=== PATIENT | female | born 1985 | race Caucasian/White ===

== ENCOUNTER → 2016-12-16 | Outpatient (CLI) | payer OTHER ==
--- NOTE | 2016-12-16 14:52 | CR ---
EXAMINATION: Right shoulder HISTORY: Pain COMPARISON: None TECHNIQUE: 3 views FINDINGS/IMPRESSION: There is no acute osseous abnormality, dislocation, or fracture identified. Bon e mineralization and joint spaces appear normal.
--- NOTE | 2016-12-16 16:05 | CR ---
EXAMINATION: Cervical spine HISTORY: Pain COMPARISON: None TECHNIQUE: AP and lateral views FINDINGS: The cervical spinal alignment is normal. The vertebral body heights and disc spaces appear well-maintained. There is no fracture or dislocation. Bone mineralization is normal. The prevertebr al soft tissues are normal. IMPRESSION: Unremarkable cervical spine.
== END ==
LOC: MW.CHORTHO 07:56
PROVIDERS: ATTEND Physician Assistant
DX: M25.511 Pain in right shoulder (principal)
CPT/HCPCS: 72040; 72040-26; 73030-26-RT; 73030-RT

== ENCOUNTER 2019-07-10 13:36 | Observation (INO) | payer OTHER ==
[2019-07-10] MEDS ORDERED: Albuterol/Ipratropium 3.0-0.5 MG/3 ML Neb Soln NEB ONE ×4 (13:40→15:19)
[2019-07-10] MEDS ORDERED: Sodium Chloride 0.9% 10 ML Syringe FLUSH PRN (13:46)
[2019-07-10] MEDS ORDERED: methylPREDNISolone Sodium Succinate 125 MG/2 ML SDV IVPUSH ONE (13:46)
[2019-07-10] MEDS ORDERED: Sodium Chloride 0.9% 2.5 ML Syringe FLUSH PRN (13:46)
[2019-07-10] MEDS ORDERED: Sodium Chloride 0.9% 1,000 ML IV ONE (13:46)
--- NOTE | 2019-07-10 13:54 | EDM.PDOC ---
ED HPI GENERAL MEDICAL PROBLEM - General Chief Complaint: Respiratory Problem Stated Complaint: TROUBLE BREATHING Time Seen by Provider: 07/10/19 13:39 - History of Present Illness INITIAL COMMENTS - FREE TEXT/NARRATIVE: HISTORY AND PHYSICAL: History of present illness: The patient is a 34-year-old female with no pulmonary history such as asthma or COPD and who does not smoke cigarettes and has a history of getting bad bronchitis 3 out of the last 4 years, last year she did not get it, and presenting with similar symptoms today. The patient says she was in the clinic on Thursday, 2 days ago, and got her flu shot but also complained of some symptoms of wheezing and coughing and she was given cough medicine as well as a Ventolin inhaler and Augmentin. She did not have any specific testing at that time such as the chest x-ray or blood work. Patient says she has never been admitted in the past for her bronchitis. She is eating and drinking normally and is not having any vomiting or diarrhea. The patient denies as her has a vasectomy. She does some event in the past when she's had bronchitis she has always received steroids and on this visit on Thursday she did not get any steroid therapy. The patient says her cough is dry except if she goes into a warm shower and then it will loosen up and she gets some phlegm up but that is not a regular event. She has felt warm but she has not taken her temperature to document fever. She has nasal drainage and postnasal drip. The sore throat headache or ear pain. Patient does complain of diffuse chest pain with the shortness of breath. Patient denies as her has a vasectomy Review of systems: As per history of present illness and below otherwise all systems reviewed and negative. Past medical history: As per history of present illness and as reviewed below otherwise noncontributory. Surgical history: As per history of present illness and as reviewed below otherwise noncontributory. Social history: No reported history of drug or alcohol abuse. Family history: As per history of present illness and as reviewed below otherwise noncontributory. Physical exam: General: Well-developed well-nourished female who is nontoxic but breathless on initial evaluation and her O2 sat with ambulating into the room and talking with 79% on room air and 84% when she was seated. She is currently on a DuoNeb as I speak to her and interview her. HEENT: Atraumatic, normocephalic, pupils reactive, negative for conjunctival pallor or scleral icterus, mucous membranes moist, throat clear, neck supple, nontender, trachea midline. Lungs: Bilateral wheezing and rhonchi throughout but she does have decent air exchange throughout all lung garcia on the neb treatment, there is some mild work of breathing with abdominal muscles, breath sounds equal bilaterally, chest nontender. Heart: S1S2, regular rhythm slightly tachycardic rate on my evaluation Abdomen: Soft, nondistended, nontender. NABS Pelvis: Deferred Genitourinary: Deferred. Rectal: Deferred. Extremities: Atraumatic, negative for cords or calf pain. No Pedal edema Neurovascular unremarkable. Neuro: Awake, alert, oriented. Cranial nerves II through XII unremarkable. Cerebellum unremarkable. Motor and sensory unremarkable throughout. Exam nonfocal. Diagnostics: Chest x-ray CBC CMP influenza EKG lactic acid Therapeutics: Duo nebs 3 IV fluids Solu-Medrol oxygen pulse oximetry After the first 2 duo nebs the patient is a 94% on 3 L nasal cannula After the third duo neb patient's O2 sat is now 98% on 3 L nasal cannula oxygen. The patient is moving air much better but she still has coarse diffuse expiratory wheezing bilaterally and no worker breathing. The patient does feel improved. We will continue to monitor her work up and I've already discussed with her the possibility for observation admission Patient is still wheezing but moving air well so we'll order a fourth DuoNeb. Her O2 sat is holding a 94% on 3 L but when we take the oxygen off and start moving her around she does dip down to the low 90s. And then she feels uncomfortable. She says she is very tired and that should all last night she could not sleep because of shortness of breath coughing and the fear that something bad was going to happen. I've discussed with her observation admission just to break the cycle and she is agreeable and I will discuss the case with the hospitalist This case was discussed with the hospitalist Dr. Amador; he is aware of the presentation and the initial hypoxia as well as the patient's progress here in the ED. I also discussed with her the WBC count and the fact that the patient is currently on Augmentin. 0328: Case was discussed with our hospitalist and she agrees with observation admission and that the patient can continue taking her home medication, Augmentin, instead of starting a new antibiotic. She thinks of the WBC count is likely reactive. Patient is comfortable and agreeable to staying. Impression: Acute bronchitis/bronchospasm with hypoxia Definitive disposition and diagnosis as appropriate pending reevaluation and review of above. - Related Data Allergies Allergy/AdvReac Type Severity Reaction Status Date / Time davidpeno Allergy Difficulty Uncoded 07/10/19 13:42 Breathing Home Meds: Home Meds Levothyroxine [Synthroid] 50 mcg PO ACBREAKFAST 07/10/19 [History] Venlafaxine HCl [Venlafaxine ER] 187.5 mg DAILY 07/10/19 [History] Past Medical History - Past Health History Medical/Surgical History: Denies Medical/Surgical History Respiratory History: Reports: Bronchitis, Recurrent [employer] History: Reports: Psychiatric History: Reports: Anxiety Endocrine/Metabolic History: Reports: Hypothyroidism - Past Surgical History HEENT Surgical History: Reports: Eye Surgery, Oral Surgery Social & Family History - Family History Family Medical History: Noncontributory - Tobacco Use Smoking Status *Q: Never Smoker - Recreational Drug Use Recreational Drug Use: No ED ROS GENERAL - Review of Systems Review Of Systems: ROS reveals no pertinent complaints other than HPI. ED EXAM, GENERAL - Physical Exam Exam: See Below (see dictation) Course - Vital Signs Last Recorded V/S: Last Vital Signs Temp 36.7 C 07/10/19 13:40 Pulse 110 H 07/10/19 15:18 Resp 20 07/10/19 15:18 BP 163/112 H 07/10/19 13:40 Pulse Ox 95 07/10/19 15:18 - Orders/Labs/Meds Orders: Active Orders 24 hr Category Date Time Status Patient Status [ADT] Stat ADT 07/10/19 15:30 Ordered EKG Documentation Completion [RC] STAT Care 07/10/19 13:47 Active Oxygen Therapy, ED [RC] ASDIRECTED Care 07/10/19 13:46 Active Pulse Oximetry [RC] ASDIRECTED Care 07/10/19 13:46 Active RT Aerosol Therapy [RC] ASDIRECTED Care 07/10/19 13:41 Active RT Aerosol Therapy [RC] ASDIRECTED Care 07/10/19 13:46 Active RT Aerosol Therapy [RC] ASDIRECTED Care 07/10/19 13:46 Active RT Aerosol Therapy [RC] ASDIRECTED Care 07/10/19 15:19 Active Sodium Chloride 0.9% [Normal Saline] 1,000 ml Med 07/10/19 15:30 Ordered IV ASDIRECTED Sodium Chloride 0.9% [Saline Flush] Med 07/10/19 13:46 Active 10 ml FLUSH ASDIRECTED PRN Sodium Chloride 0.9% [Saline Flush] Med 07/10/19 13:46 Active 2.5 ml FLUSH ASDIRECTED PRN Saline Lock Insert [OM.PC] Stat Oth 07/10/19 13:46 Ordered Medication Orders Sodium Chloride (Saline Flush) 10 ml FLUSH ASDIRECTED PRN PRN Reason: Keep Vein Open Last Admin: 07/10/19 13:55 Dose: 10 ml Sodium Chloride (Saline Flush) 2.5 ml FLUSH ASDIRECTED PRN PRN Reason: Keep Vein Open Last Admin: 07/10/19 13:55 Dose: 2.5 ml Labs: Laboratory Tests 07/10/19 07/10/19 07/10/19 Range/Units 13:45 13:45 13:45 WBC 16.17 H (4.0-11.0) K/uL RBC 4.84 (4.30-5.90) M/uL Hgb 15.8 (12.0-16.0) g/dL Hct 46.5 H (36.0-46.0) % MCV 96.1 (80.0-98.0) fL MCH 32.6 H (27.0-32.0) pg MCHC 34.0 (31.0-37.0) g/dL RDW Std Deviation 44.5 (28.0-62.0) fl RDW Coeff of Ksenia 13 (11.0-15.0) % Plt Count 160 (150-400) K/uL MPV 13.50 H (7.40-12.00) fL Neut % (Auto) 83.2 H (48.0-80.0) % Lymph % (Auto) 7.5 L (16.0-40.0) % [place] % (Auto) 5.9 (0.0-15.0) % Eos % (Auto) 3.3 (0.0-7.0) % Baso % (Auto) 0.1 (0.0-1.5) % Neut # (Auto) 13.5 H (1.4-5.7) K/uL Lymph # (Auto) 1.2 (0.6-2.4) K/uL [place] # (Auto) 1.0 H (0.0-0.8) K/uL Eos # (Auto) 0.5 (0.0-0.7) K/uL Baso # (Auto) 0.0 (0.0-0.1) K/uL Nucleated RBC % 0.1 /100WBC Nucleated RBCs # 0 K/uL Lactate 1.6 (0.20-2.00) mmol/L Sodium 141 (136-145) mmol/L Potassium 3.9 (3.5-5.1) mmol/L Chloride 101 (98-107) mmol/L Carbon Dioxide 29.9 (21.0-32.0) mmol/L BUN 6 L (7.0-18.0) mg/dL Creatinine 0.7 (0.6-1.0) mg/dL Est Cr Clr Drug Dosing 102.86 mL/min Estimated GFR (MDRD) > 60.0 ml/min Glucose 96 (74-106) mg/dL Calcium 9.3 (8.5-10.1) mg/dL Total Bilirubin 0.4 (0.2-1.0) mg/dL AST 28 (15-37) IU/L ALT 24 (14-63) IU/L Alkaline Phosphatase 74 (46-116) U/L Total Protein 8.4 H (6.4-8.2) g/dL Albumin 4.1 (3.4-5.0) g/dL Globulin 4.3 H (2.6-4.0) g/dL Albumin/Globulin Ratio 1.0 (0.9-1.6) Meds: Medications Generic Name Dose Route Start Last Admin Trade Name Freq PRN Reason Stop Dose Admin Sodium Chloride 10 ml 07/10/19 13:46 07/10/19 13:55 Saline Flush FLUSH 10 ml ASDIRECTED PRN Administration Keep Vein Open Sodium Chloride 2.5 ml 07/10/19 13:46 07/10/19 13:55 Saline Flush FLUSH 2.5 ml ASDIRECTED PRN Administration Keep Vein Open Discontinued Medications Generic Name Dose Route Start Last Admin Trade Name Freq PRN Reason Stop Dose Admin Albuterol/Ipratropium 3 ml 07/10/19 13:40 07/10/19 13:44 Duoneb 3.0-0.5 Mg/3 Ml NEB 07/10/19 13:41 3 ml ONETIME ONE Administration Albuterol/Ipratropium 3 ml 07/10/19 13:45 07/10/19 13:50 Duoneb 3.0-0.5 Mg/3 Ml NEB 07/10/19 13:46 3 ml ONETIME ONE Administration Albuterol/Ipratropium 3 ml 07/10/19 13:46 07/10/19 14:02 Duoneb 3.0-0.5 Mg/3 Ml NEB 07/10/19 13:47 3 ml ONETIME ONE Administration Albuterol/Ipratropium 3 ml 07/10/19 15:19 07/10/19 15:28 Duoneb 3.0-0.5 Mg/3 Ml NEB 07/10/19 15:20 3 ml ONETIME ONE Administration Sodium Chloride 1,000 mls @ 999 mls/hr 07/10/19 13:46 07/10/19 13:55 Normal Saline IV 07/10/19 14:46 999 mls/hr STAT ONE Administration Methylprednisolone Sodium Succinate 125 mg 07/10/19 13:46 07/10/19 13:55 Solu-Medrol IVPUSH 07/10/19 13:47 125 mg ONETIME ONE Administration Departure - Departure Time of Disposition: 15:33 Disposition: Refer to Observation Condition: Fair Clinical Impression: Hypoxia, Bronchitis, acute, with bronchospasm - Discharge Information Referrals: PCP,Unknown [Primary Care Provider] - Forms: ED Department Discharge - My Orders Last 24 Hours: My Active Orders 07/10/19 13:41 RT Aerosol Therapy [RC] ASDIRECTED 07/10/19 13:46 Oxygen Therapy, ED [RC] ASDIRECTED Pulse Oximetry [RC] ASDIRECTED RT Aerosol Therapy [RC] ASDIRECTED RT Aerosol Therapy [RC] ASDIRECTED Sodium Chloride 0.9% [Saline Flush] 10 ml FLUSH ASDIRECTED PRN Sodium Chloride 0.9% [Saline Flush] 2.5 ml FLUSH ASDIRECTED PRN Saline Lock Insert [OM.PC] Stat 07/10/19 13:47 EKG Documentation Completion [RC] STAT 07/10/19 15:19 RT Aerosol Therapy [RC] ASDIRECTED 07/10/19 15:30 Patient Status [ADT] Stat Sodium Chloride 0.9% [Normal Saline] 1,000 ml IV ASDIRECTED - Assessment/Plan Last 24 Hours: My Active Orders 07/10/19 13:41 RT Aerosol Therapy [RC] ASDIRECTED 07/10/19 13:46 Oxygen Therapy, ED [RC] ASDIRECTED Pulse Oximetry [RC] ASDIRECTED RT Aerosol Therapy [RC] ASDIRECTED RT Aerosol Therapy [RC] ASDIRECTED Sodium Chloride 0.9% [Saline Flush] 10 ml FLUSH ASDIRECTED PRN Sodium Chloride 0.9% [Saline Flush] 2.5 ml FLUSH ASDIRECTED PRN Saline Lock Insert [OM.PC] Stat 07/10/19 13:47 EKG Documentation Completion [RC] STAT 07/10/19 15:19 RT Aerosol Therapy [RC] ASDIRECTED 07/10/19 15:30 Patient Status [ADT] Stat Sodium Chloride 0.9% [Normal Saline] 1,000 ml IV ASDIRECTED
[2019-07-10 14:17] LABS: BLOOD UREA NITROGEN,BUN 6 mg/dL (7.0-18.0); CARBON DIOXIDE,CO2 29.9 mmol/L (21.0-32.0); CHLORIDE,CL 101 mmol/L (98-107); GLUCOSE RANDOM 96 mg/dL (74-106); POTASSIUM,K 3.9 mmol/L (3.5-5.1); SODIUM,NA 141 mmol/L (136-145)
--- NOTE | 2019-07-10 15:11 | CR ---
INDICATION: Shortness of breath COMPARISON: None available. FINDINGS: PA and lateral views of the chest were obtained. The lungs are clear. No focal or diffuse infiltrates are present. The heart is normal in size. The mediastinum is normal in appearance. The osseous structures are normal in appearance for the patient`s age. IMPRESSION: Normal chest 2 views. Dictated by Luciano Burch MD @ Jul 10 2019 3:08PM Signed by Dr. Luciano Burch @ Jul 10 2019 3:08PM
[2019-07-10] MEDS: Sodium Chloride 0.9% 1,000 ML IV SCH ×2 (15:35→19:59)
[2019-07-10] MEDS ORDERED: Ibuprofen 400 MG Tab PO PRN (16:33)
[2019-07-10] MEDS ORDERED: Albuterol/Ipratropium 3.0-0.5 MG/3 ML Neb Soln NEB PRN (16:33)
--- NOTE | 2019-07-10 16:42 | PCM.HP.2 ---
H&P History of Present Illness - General Date of Service: 07/10/19 Admit Problem/Dx: Admission Diagnosis/Problem Admission Diagnosis/Problem Bronchitis with bronchospasm . Source of Information: Patient History Limitations: Reports: No Limitations - History of Present Illness Initial Comments - Free Text/Narative: The patient is a 34-year-old female non-smoker, h/o frequent bronchitis, with no known asthma or COPD resenting with SOB. The patient says she went to clinic 2 days ago, and got her flu shot but also complained of some symptoms of wheezing and coughing and she was given cough medicine and Ventolin inhaler and Augmentin. Patient says she has never been admitted in the past for her bronchitis. Denied any vomiting or diarrhea. She reports subjective fevers dry cough, some chest pain with cough and postnasal drip. Patient was found to be severely hypoxic with Po2 of 79%. Patient was started on O2 and received Breathing treatments and steroids which improved her oxygenation. CXR and EKG was not significant for any acute process, Patient is being admitted for management of acute hypoxic respiratory failure. Onset of Symptoms: Reports: Today Duration of Symptoms: Reports: Getting Worse Quality: Reports: Same as Previous Episode Associated Symptoms: Reports: Chest Pain, Cough, Shortness of Breath - Related Data Allergies/Adverse Reactions: Allergies Allergy/AdvReac Type Severity Reaction Status Date / Time zakia Allergy Difficulty Uncoded 07/10/19 17:03 Breathing Home Medications: Home Meds Albuterol [Ventolin HFA] 2 puff INH Q4H PRN 07/10/19 [History] Levothyroxine [Synthroid] 50 mcg PO ACBREAKFAST 07/10/19 [History] Venlafaxine HCl [Venlafaxine ER] 187.5 mg DAILY 07/10/19 [History] guaiFENesin/Codeine Phosphate [Virtussin AC Liquid] 5 - 7.5 ml PO Q6HR PRN 07/10 [History] Past Medical History - Past Health History Medical/Surgical History: Denies Medical/Surgical History Respiratory History: Reports: Bronchitis, Recurrent [employer] History: Reports: Psychiatric History: Reports: Anxiety Endocrine/Metabolic History: Reports: Hypothyroidism - Past Surgical History HEENT Surgical History: Reports: Eye Surgery, Oral Surgery Social & Family History - Family History Family Medical History: Noncontributory - Tobacco Use Smoking Status *Q: Never Smoker - Recreational Drug Use Recreational Drug Use: No H&P Review of Systems - Review of Systems: Review Of Systems: See Below General: Reports: Fever, Chills, Malaise HEENT: Reports: Rhinitis, Post Nasal Drip, Sore Throat Pulmonary: Reports: Shortness of Breath, Wheezing, Cough Cardiovascular: Reports: Chest Pain, Dyspnea on Exertion. Denies: Palpitations , Orthopnea, PND, Edema Gastrointestinal: Denies: Abdominal Pain, Anorexia, Black Stool Genitourinary: Denies: Dysuria, Frequency, Burning Musculoskeletal: Denies: Neck Pain, Shoulder Pain Skin: Denies: Cyanosis, Jaundice Neurological: Denies: Confusion, Dizziness, Headache Hematologic/Lymphatic: Denies: Anemia, Easy Bleeding, Easy Bruising Exam - Exam Exam: See Below - Vital Signs Vital Signs: Last Vital Signs Temp 36.3 C 07/10/19 15:40 Pulse 140 H 07/10/19 15:40 Resp 20 07/10/19 15:40 BP 141/58 H 07/10/19 15:40 Pulse Ox 100 07/10/19 15:40 Weight: 70.307 kg - Exam Quality Assessment: Supplemental Oxygen General: Alert, Oriented, Cooperative, Moderate Distress HEENT: Conjunctiva Clear, Mucosa Moist & [place], Rhinitis Neck: Supple, Trachea Midline Lungs: Decreased Breath Sounds, Wheezing Cardiovascular: Regular Rhythm, Tachycardia GI/Abdominal Exam: Normal Bowel Sounds, Soft - Patient Data Lab Results Last 24 hrs: Laboratory Results - last 24 hr 07/10/19 07/10/19 07/10/19 Range/Units 13:45 13:45 13:45 WBC 16.17 H (4.0-11.0) K/uL RBC 4.84 (4.30-5.90) M/uL Hgb 15.8 (12.0-16.0) g/dL Hct 46.5 H (36.0-46.0) % MCV 96.1 (80.0-98.0) fL MCH 32.6 H (27.0-32.0) pg MCHC 34.0 (31.0-37.0) g/dL RDW Std Deviation 44.5 (28.0-62.0) fl RDW Coeff of Ksenia 13 (11.0-15.0) % Plt Count 160 (150-400) K/uL MPV 13.50 H (7.40-12.00) fL Neut % (Auto) 83.2 H (48.0-80.0) % Lymph % (Auto) 7.5 L (16.0-40.0) % [place] % (Auto) 5.9 (0.0-15.0) % Eos % (Auto) 3.3 (0.0-7.0) % Baso % (Auto) 0.1 (0.0-1.5) % Neut # (Auto) 13.5 H (1.4-5.7) K/uL Lymph # (Auto) 1.2 (0.6-2.4) K/uL [place] # (Auto) 1.0 H (0.0-0.8) K/uL Eos # (Auto) 0.5 (0.0-0.7) K/uL Baso # (Auto) 0.0 (0.0-0.1) K/uL Nucleated RBC % 0.1 /100WBC Nucleated RBCs # 0 K/uL Lactate 1.6 (0.20-2.00) mmol/L Sodium 141 (136-145) mmol/L Potassium 3.9 (3.5-5.1) mmol/L Chloride 101 (98-107) mmol/L Carbon Dioxide 29.9 (21.0-32.0) mmol/L BUN 6 L (7.0-18.0) mg/dL Creatinine 0.7 (0.6-1.0) mg/dL Est Cr Clr Drug Dosing 102.86 mL/min Estimated GFR (MDRD) > 60.0 ml/min Glucose 96 (74-106) mg/dL Calcium 9.3 (8.5-10.1) mg/dL Total Bilirubin 0.4 (0.2-1.0) mg/dL AST 28 (15-37) IU/L ALT 24 (14-63) IU/L Alkaline Phosphatase 74 (46-116) U/L Total Protein 8.4 H (6.4-8.2) g/dL Albumin 4.1 (3.4-5.0) g/dL Globulin 4.3 H (2.6-4.0) g/dL Albumin/Globulin Ratio 1.0 (0.9-1.6) Result Diagrams: 07/10/19 13:45 07/10/19 13:45 Junior Results Last 24 hrs: Microbiology 07/10/19 13:51 Influenza Type A Antigen Screen - Final Nasopharyngeal Swab NEGATIVE INFLUENZA A VIRUS AG REFERENCE RANGE: NEGATIVE Influenza Type B Antigen Screen - Final NEGATIVE INFLUENZA B VIRUS AG REFERENCE RANGE: NEGATIVE *Q Meaningful Use (ADM) - VTE Risk Assess *Q Each Risk Factor Represents 1 Point: None Total Score 1 Point Risk Factors: 0 Each Risk Factor Represents 2 Points: None Total Score 2 Point Risk Factors: 0 Each Risk Factor Represents 3 Points: None Total Score 3 Point Risk Factors: 0 - Problem List (1) Acute hypoxemic respiratory failure SNOMED Code(s): 415611782 ICD Code: J96.01 - ACUTE RESPIRATORY FAILURE WITH HYPOXIA Status: Acute Current Visit: Yes (2) Bronchitis, acute, with bronchospasm SNOMED Code(s): 71700878 ICD Code: J20.9 - ACUTE BRONCHITIS, UNSPECIFIED Status: Acute Current Visit: Yes Problem List Initiated/Reviewed/Updated: Yes Orders Last 24hrs: Active Orders 24 hr Category Date Time Status Patient Status [ADT] Stat ADT 07/10/19 15:30 Active Ambulate [RC] ASDIRECTED Care 07/10/19 16:17 Active EKG Documentation Completion [RC] STAT Care 07/10/19 13:47 Active Oxygen Therapy [RC] PRN Care 07/10/19 16:18 Active Oxygen Therapy, ED [RC] ASDIRECTED Care 07/10/19 13:46 Active Pulse Oximetry [RC] ASDIRECTED Care 07/10/19 13:46 Active RT Aerosol Therapy [RC] ASDIRECTED Care 07/10/19 13:41 Active RT Aerosol Therapy [RC] ASDIRECTED Care 07/10/19 13:46 Active RT Aerosol Therapy [RC] ASDIRECTED Care 07/10/19 13:46 Active RT Aerosol Therapy [RC] ASDIRECTED Care 07/10/19 15:19 Active RT Aerosol Therapy [RC] ASDIRECTED Care 07/10/19 16:36 Active RT Peak Flow Measurement [RC] ASDIRECTED Care 07/10/19 16:40 Active VTE/DVT Education [RC] PER UNIT ROUTINE Care 07/10/19 16:18 Active Vital Signs [RC] Q4H Care 07/10/19 16:18 Active Albuterol/Ipratropium [DuoNeb 3.0-0.5 MG/3 ML] Med 07/10/19 16:33 Active 3 ml NEB Q4HRRT PRN Ibuprofen [Motrin] Med 07/10/19 16:33 Active 400 mg PO Q6H PRN Levothyroxine [Synthroid] Med 07/11/19 07:30 Ordered 50 mcg PO ACBREAKFAST Sodium Chloride 0.9% [Normal Saline] 1,000 ml Med 07/10/19 15:30 Active IV ASDIRECTED Sodium Chloride 0.9% [Saline Flush] Med 07/10/19 13:46 Active 10 ml FLUSH ASDIRECTED PRN Sodium Chloride 0.9% [Saline Flush] Med 07/10/19 13:46 Active 2.5 ml FLUSH ASDIRECTED PRN Venlafaxine HCl Med 07/11/19 09:00 Ordered 187.5 mg PO DAILY methylPREDNISolone Sod Succ [Solu-MEDROL] Med 07/10/19 21:00 Active 40 mg IV BID Saline Lock Insert [OM.PC] Stat Oth 07/10/19 13:46 Ordered Resuscitation Status Routine Resus Stat 07/10/19 16:17 Ordered Medication Orders Albuterol/Ipratropium (Duoneb 3.0-0.5 Mg/3 Ml) 3 ml NEB Q4HRRT PRN PRN Reason: Shortness of Breath Sodium Chloride (Normal Saline) 1,000 mls @ 125 mls/hr IV ASDIRECTED ARABELLA Last Admin: 07/10/19 15:35 Dose: 125 mls/hr Ibuprofen (Motrin) 400 mg PO Q6H PRN PRN Reason: Pain (mild 1-3) Methylprednisolone Sodium Succinate (Solu-Medrol) 40 mg IV BID ARABELLA Sodium Chloride (Saline Flush) 10 ml FLUSH ASDIRECTED PRN PRN Reason: Keep Vein Open Last Admin: 07/10/19 13:55 Dose: 10 ml Sodium Chloride (Saline Flush) 2.5 ml FLUSH ASDIRECTED PRN PRN Reason: Keep Vein Open Last Admin: 07/10/19 13:55 Dose: 2.5 ml Assessment/Plan Comment:: Patient came in with c/o SOB, cough chest pain upon coughing, wheezing Was found to be hypoxic in ER, started on Oxygen and received several breathing treatments and steroids, Symptoms improved but patient kept requiring frequent breathing treatments CXR, EKG unremarkable Will admit to Med-Surg Will start patient on IV steroids Will start scheduled DuoNEbs Will Start IV fluids as patient looks dehydrated possible secondary to insensible fluid loss due to her symptoms Will cont Augmentin WBC count high but i don't suspect infection currently, it might jump up further due to steroids Will cont to monitor Monitor and replete electrolytes as necessary Regular diet Anticipate 1 midnight stay
[2019-07-10] MEDS: Albuterol/Ipratropium 3.0-0.5 MG/3 ML Neb Soln NEB SCH (19:08)
[2019-07-10] MEDS: CLAVULANATE K PO SCH (20:00)
[2019-07-10] MEDS: methylPREDNISolone Sodium Succinate 40 MG/1 ML SDV IV SCH (20:00)
[2019-07-10] MEDS: AMOXICILLIN PO SCH (20:00)
[2019-07-10] MEDS ORDERED: Amoxicillin/Clavulanate K 875-125 MG Tab PO SCH (21:00)
[2019-07-11] MEDS ORDERED: Albuterol/Ipratropium 3.0-0.5 MG/3 ML Neb Soln NEB SCH
[2019-07-11] MEDS: Albuterol/Ipratropium 3.0-0.5 MG/3 ML Neb Soln NEB SCH ×4 (00:06→17:39)
[2019-07-11] MEDS: Sodium Chloride 0.9% 1,000 ML IV SCH ×2 (03:57→11:46)
[2019-07-11 05:49] LABS: BLOOD UREA NITROGEN,BUN 5 mg/dL (7.0-18.0); CARBON DIOXIDE,CO2 24.1 mmol/L (21.0-32.0); CHLORIDE,CL 106 mmol/L (98-107); GLUCOSE RANDOM 123 mg/dL (74-106); POTASSIUM,K 3.9 mmol/L (3.5-5.1); SODIUM,NA 141 mmol/L (136-145)
[2019-07-11] MEDS ORDERED: Levothyroxine 50 MCG Tab PO SCH ×2 (07:30→09:30)
[2019-07-11] MEDS ORDERED: Venlafaxine 37.5 MG Cap.ER PO SCH (09:00)
[2019-07-11] MEDS ORDERED: Magnesium Oxide 400 MG Tab PO ONE (09:07)
[2019-07-11] MEDS: methylPREDNISolone Sodium Succinate 40 MG/1 ML SDV IV SCH ×2 (09:20→17:57)
[2019-07-11] MEDS: AMOXICILLIN PO SCH (09:27)
[2019-07-11] MEDS: CLAVULANATE K PO SCH (09:27)
[2019-07-11] MEDS ORDERED: VENLAFAXINE 37.5 MG PO SCH (09:30)
[2019-07-11] MEDS ORDERED: VENLAFAXINE 150 MG PO SCH (09:30)
[2019-07-11] MEDS ORDERED: guaiFENesin/Dextromethorphan 100-10 MG/5 ML Soln 10 ML Cup PO PRN (10:03)
--- NOTE | 2019-07-11 10:07 | PCM.PN ---
- General Info Date of Service: 07/11/19 Admission Dx/Problem (Free Text): Admission Diagnosis/Problem Admission Diagnosis/Problem Bronchitis with bronchospasm . Subjective Update: Patient seen and examined at bedside, seems to be anxious and c/o chest tightness and SOB. - Review of Systems General: Reports: Malaise. Denies: Fever, Weakness, Fatigue HEENT: Reports: Post Nasal Drip, Sinus Congestion, Rhinitis Pulmonary: Reports: Shortness of Breath, Cough, Sputum, Wheezing Cardiovascular: Reports: Dyspnea on Exertion. Denies: Chest Pain, Palpitations , Orthopnea, PND Gastrointestinal: Denies: Abdominal Pain, Constipation, Decreased Appetite Genitourinary: Denies: Dysuria, Frequency, Burning Musculoskeletal: Denies: Neck Pain, Shoulder Pain, Arm Pain Skin: Denies: Cyanosis, Jaundice, Mottled - Patient Data Vitals - Most Recent: Last Vital Signs Temp 37.0 C 07/11/19 03:59 Pulse 110 H 07/11/19 03:59 Resp 18 07/11/19 03:59 BP 130/78 07/11/19 03:59 Pulse Ox 96 07/11/19 03:59 Weight - Most Recent: 70.307 kg I&O - Last 24 Hours: Intake & Output 07/10/19 07/11/19 07/11/19 22:59 06:59 14:59 Intake Total 3050 Output Total 2500 Balance 550 Lab Results Last 24 Hours: Laboratory Results - last 24 hr 07/10/19 07/10/19 07/10/19 Range/Units 13:45 13:45 13:45 WBC 16.17 H (4.0-11.0) K/uL RBC 4.84 (4.30-5.90) M/uL Hgb 15.8 (12.0-16.0) g/dL Hct 46.5 H (36.0-46.0) % MCV 96.1 (80.0-98.0) fL MCH 32.6 H (27.0-32.0) pg MCHC 34.0 (31.0-37.0) g/dL RDW Std Deviation 44.5 (28.0-62.0) fl RDW Coeff of Ksenia 13 (11.0-15.0) % Plt Count 160 (150-400) K/uL MPV 13.50 H (7.40-12.00) fL Neut % (Auto) 83.2 H (48.0-80.0) % Lymph % (Auto) 7.5 L (16.0-40.0) % [place] % (Auto) 5.9 (0.0-15.0) % Eos % (Auto) 3.3 (0.0-7.0) % Baso % (Auto) 0.1 (0.0-1.5) % Neut # (Auto) 13.5 H (1.4-5.7) K/uL Lymph # (Auto) 1.2 (0.6-2.4) K/uL [place] # (Auto) 1.0 H (0.0-0.8) K/uL Eos # (Auto) 0.5 (0.0-0.7) K/uL Baso # (Auto) 0.0 (0.0-0.1) K/uL Nucleated RBC % 0.1 /100WBC Nucleated RBCs # 0 K/uL Lactate 1.6 (0.20-2.00) mmol/L Sodium 141 (136-145) mmol/L Potassium 3.9 (3.5-5.1) mmol/L Chloride 101 (98-107) mmol/L Carbon Dioxide 29.9 (21.0-32.0) mmol/L BUN 6 L (7.0-18.0) mg/dL Creatinine 0.7 (0.6-1.0) mg/dL Est Cr Clr Drug Dosing 102.86 mL/min Estimated GFR (MDRD) > 60.0 ml/min Glucose 96 (74-106) mg/dL Calcium 9.3 (8.5-10.1) mg/dL Phosphorus (2.6-4.7) mg/dL Magnesium (1.8-2.4) mg/dL Total Bilirubin 0.4 (0.2-1.0) mg/dL AST 28 (15-37) IU/L ALT 24 (14-63) IU/L Alkaline Phosphatase 74 (46-116) U/L Total Protein 8.4 H (6.4-8.2) g/dL Albumin 4.1 (3.4-5.0) g/dL Globulin 4.3 H (2.6-4.0) g/dL Albumin/Globulin Ratio 1.0 (0.9-1.6) 07/10/19 07/11/19 07/11/19 Range/Units 13:45 05:20 05:20 WBC 10.60 (4.0-11.0) K/uL RBC 4.15 L (4.30-5.90) M/uL Hgb 13.4 (12.0-16.0) g/dL Hct 39.7 (36.0-46.0) % MCV 95.7 (80.0-98.0) fL MCH 32.3 H (27.0-32.0) pg MCHC 33.8 (31.0-37.0) g/dL RDW Std Deviation 44.8 (28.0-62.0) fl RDW Coeff of Ksenia 13 (11.0-15.0) % Plt Count 147 L (150-400) K/uL MPV 13.50 H (7.40-12.00) fL Neut % (Auto) 90.1 H (48.0-80.0) % Lymph % (Auto) 5.6 L (16.0-40.0) % [place] % (Auto) 4.2 (0.0-15.0) % Eos % (Auto) 0.0 (0.0-7.0) % Baso % (Auto) 0.1 (0.0-1.5) % Neut # (Auto) 9.6 H (1.4-5.7) K/uL Lymph # (Auto) 0.6 (0.6-2.4) K/uL [place] # (Auto) 0.5 (0.0-0.8) K/uL Eos # (Auto) 0.0 (0.0-0.7) K/uL Baso # (Auto) 0.0 (0.0-0.1) K/uL Nucleated RBC % 0.0 /100WBC Nucleated RBCs # 0 K/uL Lactate (0.20-2.00) mmol/L Sodium 141 (136-145) mmol/L Potassium 3.9 (3.5-5.1) mmol/L Chloride 106 (98-107) mmol/L Carbon Dioxide 24.1 (21.0-32.0) mmol/L BUN 5 L (7.0-18.0) mg/dL Creatinine 0.7 (0.6-1.0) mg/dL Est Cr Clr Drug Dosing 102.86 mL/min Estimated GFR (MDRD) > 60.0 ml/min Glucose 123 H (74-106) mg/dL Calcium 8.7 (8.5-10.1) mg/dL Phosphorus 3.2 (2.6-4.7) mg/dL Magnesium 2.1 1.9 (1.8-2.4) mg/dL Total Bilirubin (0.2-1.0) mg/dL AST (15-37) IU/L ALT (14-63) IU/L Alkaline Phosphatase (46-116) U/L Total Protein (6.4-8.2) g/dL Albumin (3.4-5.0) g/dL Globulin (2.6-4.0) g/dL Albumin/Globulin Ratio (0.9-1.6) Junior Results Last 24 Hours: Microbiology 07/10/19 13:51 Influenza Type A Antigen Screen - Final Nasopharyngeal Swab NEGATIVE INFLUENZA A VIRUS AG REFERENCE RANGE: NEGATIVE Influenza Type B Antigen Screen - Final NEGATIVE INFLUENZA B VIRUS AG REFERENCE RANGE: NEGATIVE Med Orders - Current: Current Medications Albuterol/Ipratropium (Duoneb 3.0-0.5 Mg/3 Ml) 3 ml NEB Q6HRRT [facility] Last Admin: 07/11/19 05:50 Dose: 3 ml Amoxicillin/Clavulanate Potassium (Augmentin 875 Mg/125 Mg) 1 tab PO Q12HR [facility] Last Admin: 07/11/19 09:27 Dose: 1 tab Guaifenesin/Dextromethorphan (Robitussin Dm) 10 ml PO Q4H PRN PRN Reason: Cough Sodium Chloride (Normal Saline) 1,000 mls @ 125 mls/hr IV ASDIRECTED [facility] Last Admin: 07/11/19 03:57 Dose: 125 mls/hr Ibuprofen (Motrin) 400 mg PO Q6H PRN PRN Reason: Pain (mild 1-3) Last Admin: 07/11/19 04:10 Dose: 400 mg Methylprednisolone Sodium Succinate (Solu-Medrol) 40 mg IV BID [facility] Last Admin: 07/11/19 09:20 Dose: 40 mg Levothyroxine 50 Mcg (Tab) 50 each PO ACBREAKFAST [facility] Last Admin: 07/11/19 09:26 Dose: Not Given Venlafaxine 37.5 Mg (Er) 0 each PO DAILY [facility] Last Admin: 07/11/19 09:25 Dose: 1 each Venlafaxine 150 Mg (Er Capsule) 0 each PO DAILY [facility] Last Admin: 07/11/19 09:26 Dose: 1 each Sodium Chloride (Saline Flush) 10 ml FLUSH ASDIRECTED PRN PRN Reason: Keep Vein Open Last Admin: 07/10/19 13:55 Dose: 10 ml Sodium Chloride (Saline Flush) 2.5 ml FLUSH ASDIRECTED PRN PRN Reason: Keep Vein Open Last Admin: 07/10/19 13:55 Dose: 2.5 ml Discontinued Medications Albuterol/Ipratropium (Duoneb 3.0-0.5 Mg/3 Ml) 3 ml NEB ONETIME ONE Stop: 07/10/19 13:41 Last Admin: 07/10/19 13:44 Dose: 3 ml Albuterol/Ipratropium (Duoneb 3.0-0.5 Mg/3 Ml) 3 ml NEB ONETIME ONE Stop: 07/10/19 13:46 Last Admin: 07/10/19 13:50 Dose: 3 ml Albuterol/Ipratropium (Duoneb 3.0-0.5 Mg/3 Ml) 3 ml NEB ONETIME ONE Stop: 07/10/19 13:47 Last Admin: 07/10/19 14:02 Dose: 3 ml Albuterol/Ipratropium (Duoneb 3.0-0.5 Mg/3 Ml) 3 ml NEB ONETIME ONE Stop: 07/10/19 15:20 Last Admin: 07/10/19 15:28 Dose: 3 ml Albuterol/Ipratropium (Duoneb 3.0-0.5 Mg/3 Ml) 3 ml NEB Q4HRRT PRN PRN Reason: Shortness of Breath Albuterol/Ipratropium (Duoneb 3.0-0.5 Mg/3 Ml) 3 ml NEB Q6HRRT [facility] Sodium Chloride (Normal Saline) 1,000 mls @ 999 mls/hr IV STAT ONE Stop: 07/10/19 14:46 Last Admin: 07/10/19 13:55 Dose: 999 mls/hr Levothyroxine Sodium (Synthroid) 50 mcg PO ACBREAKFAST [facility] Last Admin: 07/11/19 06:33 Dose: 50 mcg Magnesium Oxide (Magnesium Oxide) 800 mg PO ONETIME ONE Stop: 07/11/19 09:08 Last Admin: 07/11/19 09:38 Dose: 800 mg Methylprednisolone Sodium Succinate (Solu-Medrol) 125 mg IVPUSH ONETIME ONE Stop: 07/10/19 13:47 Last Admin: 07/10/19 13:55 Dose: 125 mg Venlafaxine HCl (Effexor Xr) 187.5 mg PO DAILY [facility] Last Admin: 07/11/19 09:33 Dose: Not Given - Problem List & Annotations (1) Acute hypoxemic respiratory failure SNOMED Code(s): 019564727 Code(s): J96.01 - ACUTE RESPIRATORY FAILURE WITH HYPOXIA Status: Acute Current Visit: Yes (2) Bronchitis, acute, with bronchospasm SNOMED Code(s): 61989054 Code(s): J20.9 - ACUTE BRONCHITIS, UNSPECIFIED Status: Acute Current Visit: Yes - Problem List Review Problem List Initiated/Reviewed/Updated: Yes - My Orders Last 24 Hours: My Active Orders 07/10/19 16:17 Ambulate [RC] ASDIRECTED Resuscitation Status Routine 07/10/19 16:18 Oxygen Therapy [RC] PRN VTE/DVT Education [RC] PER UNIT ROUTINE Vital Signs [RC] Q4H 07/10/19 16:33 Ibuprofen [Motrin] 400 mg PO Q6H PRN 07/10/19 16:36 RT Aerosol Therapy [RC] ASDIRECTED 07/10/19 16:40 RT Peak Flow Measurement [RC] ASDIRECTED 07/10/19 18:16 RT Aerosol Therapy [RC] ASDIRECTED 07/10/19 18:19 RT Aerosol Therapy [RC] ASDIRECTED 07/10/19 19:00 Albuterol/Ipratropium [DuoNeb 3.0-0.5 MG/3 ML] 3 ml NEB Q6HRRT 07/10/19 21:00 Amoxicillin/Clavulanate K [Augmentin 875 MG/125 MG] 1 tab PO Q12HR methylPREDNISolone Sod Succ [Solu-MEDROL] 40 mg IV BID 07/10/19 Dinner Regular Diet [DIET] 07/11/19 09:30 Patient's Own Medication [Ptom] 0 each PO DAILY Patient's Own Medication [Ptom] 0 each PO DAILY Patient's Own Medication [Ptom] 50 each PO ACBREAKFAST 07/11/19 10:03 Dextromethorphan/guaiFENesin [Robitussin DM] 10 ml PO Q4H PRN 07/11/19 10:05 RT Oxygen High Humidity High Flow [RESPCARE] Routine - Plan Plan:: Patient came in with c/o SOB, cough chest pain upon coughing, wheezing Was found to be hypoxic in ER, started on Oxygen and received several breathing treatments and steroids, Symptoms improved but patient kept requiring frequent breathing treatments CXR, EKG unremarkable Patient continues to be symptomatic today cont on IV steroids cont scheduled DuoNEbs start Singulair start Dextrorphan/Guaifenesin cont IV fluids for hydration Will cont Augmentin Monitor and replete electrolytes as necessary Regular diet Anticipate 1 more midnight stay
[2019-07-11] MEDS ORDERED: LORazepam 0.5 MG Tab PO ONE (11:06)
[2019-07-11] MEDS ORDERED: Montelukast 10 MG Tab PO SCH (11:15)
--- NOTE | 2019-07-11 15:11 | PCM.SN ---
- Free Text/Narrative Note: Patient continues to need oxygen and is tachycardic. I obtained D-Dimer which is elevated, so will obtain CTA chest. f/u: CTA negative for PE patient states she feels much better and is bale to ambulate without oxygen. Will check ambulatory pulse oxy and d/c accordingly
[2019-07-11] MEDS ORDERED: Iopamidol 755 MG/ML 500 ML Multipack Bottle IVPUSH STA (16:01)
[2019-07-11 16:26] VITALS: BP 135/93; PULSE 86
--- NOTE | 2019-07-11 16:42 | CT ---
CT chest Technique: Multiple axial sections through the chest were obtained. Intravenous contrast was utilized. Study has been performed as a pulmonary angiogram protocol. Comparison: No prior chest imaging is available. Findings: Pulmonary arteries are moderately well-opacified. No filling defects are seen within the main or segmental branches. Subsegmental pulmonary emboli could be missed. Mediastinum and hilar regions show no adenopathy or mass. Aorta shows no aneurysm. No coronary artery calcification is seen. No pericardial thickening is noted. Lungs show no acute parenchymal change. No pleural effusions or pneumothorax is seen. No discrete pulmonary nodule is appreciated. Bone window settings appear within normal limits for the patient's age. Impression: 1. Pulmonary arteries are moderately well-opacified. As mentioned above, nothing is seen to indicate pulmonary embolism within the main or segmental branches but smaller subsegmental pulmonary emboli could be missed. 2. Other portions of the chest CT study appear within normal limits for the patient's age. Diagnostic code #2 MTDD
--- NOTE | 2019-07-11 20:10 | PCM.DCSUM1 ---
Discharge Summary - Hospital Course Free Text/Narrative:: Patient came in for evaluation of respiratory distress. Was found to be hypoxic to 79% in ER, was immediately started on oxygen and breathing treatment. CXR was negative. Patient was admitted for further management of Asthma/bronchitis. Augmentin was continued, patient was started on scheduled DuoNebs and IV steroids. D-dimer was elevayed,Patient also underwent CT chest angiography which was negative. Patients symptoms improved and was eventually d/cd on PO steroids after checking her ambulatory pulse oxy. Patient was medically stable for d/c and was recommended to avoid any allergic triggers such as cold air, dust or overexertion for next few days. Patient will f/u with her PCP on Outpatient basis. Diagnosis: Stroke: No - Discharge Data Discharge Date: 07/11/19 Discharge Disposition: Home, Self-Care 01 Condition: Stable - Referral to Home Health Primary Care Physician: PCP Unknown - Discharge Diagnosis/Problem(s) (1) Acute hypoxemic respiratory failure SNOMED Code(s): 061034441 ICD Code: J96.01 - ACUTE RESPIRATORY FAILURE WITH HYPOXIA Status: Acute (2) Bronchitis, acute, with bronchospasm SNOMED Code(s): 06451577 ICD Code: J20.9 - ACUTE BRONCHITIS, UNSPECIFIED Status: Acute - Patient Instructions Diet: Regular Diet as Tolerated Activity: As Tolerated, Rest and Relax Today Driving: May Drive Today Showering/Bathing: May Shower Notify Provider of: Fever, Increased Pain - Discharge Plan *PRESCRIPTION DRUG MONITORING PROGRAM REVIEWED*: Not Applicable *COPY OF PRESCRIPTION DRUG MONITORING REPORT IN PATIENT ISABEL: Not Applicable Prescriptions/Med Rec: Dextromethorphan/guaiFENesin [Robitussin DM] 10 ml PO Q4H PRN #1 bottle PRN Reason: Cough Montelukast [Singulair] 10 mg PO DAILY #14 tablet predniSONE [Prednisone] 40 mg PO DAILY 5 Days #10 tablet Home Medications: Home Meds Albuterol [Ventolin HFA] 2 puff INH Q4H PRN 07/10/19 [History] Levothyroxine [Synthroid] 50 mcg PO ACBREAKFAST 07/10/19 [History] Venlafaxine HCl [Venlafaxine ER] 187.5 mg DAILY 07/10/19 [History] Dextromethorphan/guaiFENesin [Robitussin DM] 10 ml PO Q4H PRN #1 bottle [Rx] Montelukast [Singulair] 10 mg PO DAILY #14 tablet 07/11/19 [Rx] predniSONE [Prednisone] 40 mg PO DAILY 5 Days #10 tablet 07/11/19 [Rx] Patient Handouts: Hypoxia, Montelukast oral tablets, Dextromethorphan; Guaifenesin oral solution, Acute Bronchitis, Adult, [id number], Prednisone tablets Referrals: Aleksander Winston MD [Resident] - 07/20/19 3:30 pm - Discharge Summary/Plan Comment DC Time >30 min.: No Discharge Summary/Plan Comment: Patient came in for evaluation of respiratory distress. Was found to be hypoxic to 79% in ER, was immediately started on oxygen and breathing treatment. CXR was negative. Patient was admitted for further management of Asthma/bronchitis. Augmentin was continued, patient was started on scheduled DuoNebs and IV steroids. D-dimer was elevayed,Patient also underwent CT chest angiography which was negative. Patients symptoms improved and was eventually d/cd on PO steroids after checking her ambulatory pulse oxy. Patient was medically stable for d/c and was recommended to avoid any allergic triggers such as cold air, dust or overexertion for next few days. Patient will f/u with her PCP on Outpatient basis. - Patient Data Vitals - Most Recent: Last Vital Signs Temp 36.8 C 07/11/19 16:23 Pulse 86 07/11/19 16:23 Resp 18 07/11/19 16:23 BP 135/93 H 07/11/19 16:23 Pulse Ox 95 07/11/19 16:48 Weight - Most Recent: 70.307 kg I&O - Last 24 hours: Intake & Output 07/11/19 07/11/19 07/11/19 06:59 14:59 22:59 Intake Total 3050 3080 Output Total 2500 3200 Balance 550 -120 Lab Results - Last 24 hrs: Laboratory Results - last 24 hr 07/10/19 07/11/19 07/11/19 Range/Units 13:45 05:20 05:20 WBC 10.60 (4.0-11.0) K/uL RBC 4.15 L (4.30-5.90) M/uL Hgb 13.4 (12.0-16.0) g/dL Hct 39.7 (36.0-46.0) % MCV 95.7 (80.0-98.0) fL MCH 32.3 H (27.0-32.0) pg MCHC 33.8 (31.0-37.0) g/dL RDW Std Deviation 44.8 (28.0-62.0) fl RDW Coeff of Ksenia 13 (11.0-15.0) % Plt Count 147 L (150-400) K/uL MPV 13.50 H (7.40-12.00) fL Neut % (Auto) 90.1 H (48.0-80.0) % Lymph % (Auto) 5.6 L (16.0-40.0) % [place] % (Auto) 4.2 (0.0-15.0) % Eos % (Auto) 0.0 (0.0-7.0) % Baso % (Auto) 0.1 (0.0-1.5) % Neut # (Auto) 9.6 H (1.4-5.7) K/uL Lymph # (Auto) 0.6 (0.6-2.4) K/uL [place] # (Auto) 0.5 (0.0-0.8) K/uL Eos # (Auto) 0.0 (0.0-0.7) K/uL Baso # (Auto) 0.0 (0.0-0.1) K/uL Nucleated RBC % 0.0 /100WBC Nucleated RBCs # 0 K/uL D-Dimer, Quantitative (0.0-0.50) mg/L FEU Sodium 141 (136-145) mmol/L Potassium 3.9 (3.5-5.1) mmol/L Chloride 106 (98-107) mmol/L Carbon Dioxide 24.1 (21.0-32.0) mmol/L BUN 5 L (7.0-18.0) mg/dL Creatinine 0.7 (0.6-1.0) mg/dL Est Cr Clr Drug Dosing 102.86 mL/min Estimated GFR (MDRD) > 60.0 ml/min Glucose 123 H (74-106) mg/dL Calcium 8.7 (8.5-10.1) mg/dL Phosphorus 3.2 (2.6-4.7) mg/dL Magnesium 2.1 1.9 (1.8-2.4) mg/dL Urine HCG, Qual (NEGATIVE) 07/11/19 07/11/19 Range/Units 13:17 15:25 WBC (4.0-11.0) K/uL RBC (4.30-5.90) M/uL Hgb (12.0-16.0) g/dL Hct (36.0-46.0) % MCV (80.0-98.0) fL MCH (27.0-32.0) pg MCHC (31.0-37.0) g/dL RDW Std Deviation (28.0-62.0) fl RDW Coeff of Ksenia (11.0-15.0) % Plt Count (150-400) K/uL MPV (7.40-12.00) fL Neut % (Auto) (48.0-80.0) % Lymph % (Auto) (16.0-40.0) % [place] % (Auto) (0.0-15.0) % Eos % (Auto) (0.0-7.0) % Baso % (Auto) (0.0-1.5) % Neut # (Auto) (1.4-5.7) K/uL Lymph # (Auto) (0.6-2.4) K/uL [place] # (Auto) (0.0-0.8) K/uL Eos # (Auto) (0.0-0.7) K/uL Baso # (Auto) (0.0-0.1) K/uL Nucleated RBC % /100WBC Nucleated RBCs # K/uL D-Dimer, Quantitative 1.15 H (0.0-0.50) mg/L FEU Sodium (136-145) mmol/L Potassium (3.5-5.1) mmol/L Chloride (98-107) mmol/L Carbon Dioxide (21.0-32.0) mmol/L BUN (7.0-18.0) mg/dL Creatinine (0.6-1.0) mg/dL Est Cr Clr Drug Dosing mL/min Estimated GFR (MDRD) ml/min Glucose (74-106) mg/dL Calcium (8.5-10.1) mg/dL Phosphorus (2.6-4.7) mg/dL Magnesium (1.8-2.4) mg/dL Urine HCG, Qual NEGATIVE (NEGATIVE) Med Orders - Current: Current Medications Discontinued Medications Albuterol/Ipratropium (Duoneb 3.0-0.5 Mg/3 Ml) 3 ml NEB ONETIME ONE Stop: 07/10/19 13:41 Last Admin: 07/10/19 13:44 Dose: 3 ml Albuterol/Ipratropium (Duoneb 3.0-0.5 Mg/3 Ml) 3 ml NEB ONETIME ONE Stop: 07/10/19 13:46 Last Admin: 07/10/19 13:50 Dose: 3 ml Albuterol/Ipratropium (Duoneb 3.0-0.5 Mg/3 Ml) 3 ml NEB ONETIME ONE Stop: 07/10/19 13:47 Last Admin: 07/10/19 14:02 Dose: 3 ml Albuterol/Ipratropium (Duoneb 3.0-0.5 Mg/3 Ml) 3 ml NEB ONETIME ONE Stop: 07/10/19 15:20 Last Admin: 07/10/19 15:28 Dose: 3 ml Albuterol/Ipratropium (Duoneb 3.0-0.5 Mg/3 Ml) 3 ml NEB Q4HRRT PRN PRN Reason: Shortness of Breath Albuterol/Ipratropium (Duoneb 3.0-0.5 Mg/3 Ml) 3 ml NEB Q6HRRT [facility] Albuterol/Ipratropium (Duoneb 3.0-0.5 Mg/3 Ml) 3 ml NEB Q6HRRT [facility] Last Admin: 07/11/19 17:39 Dose: 3 ml Amoxicillin/Clavulanate Potassium (Augmentin 875 Mg/125 Mg) 1 tab PO Q12HR [facility] Last Admin: 07/11/19 09:27 Dose: 1 tab Guaifenesin/Dextromethorphan (Robitussin Dm) 10 ml PO Q4H PRN PRN Reason: Cough Sodium Chloride (Normal Saline) 1,000 mls @ 999 mls/hr IV STAT ONE Stop: 07/10/19 14:46 Last Admin: 07/10/19 13:55 Dose: 999 mls/hr Sodium Chloride (Normal Saline) 1,000 mls @ 125 mls/hr IV ASDIRECTED [facility] Last Admin: 07/11/19 11:46 Dose: 125 mls/hr Ibuprofen (Motrin) 400 mg PO Q6H PRN PRN Reason: Pain (mild 1-3) Last Admin: 07/11/19 04:10 Dose: 400 mg Iopamidol (Isovue Multipack-370 (76%)) 50 ml IVPUSH ONETIME STA Stop: 07/11/19 16:02 Last Admin: 07/11/19 16:15 Dose: 50 ml Levothyroxine Sodium (Synthroid) 50 mcg PO ACBREAKFAST [facility] Last Admin: 07/11/19 06:33 Dose: 50 mcg Lorazepam (Ativan) 0.5 mg PO ONETIME ONE Stop: 07/11/19 11:07 Last Admin: 07/11/19 11:49 Dose: 0.5 mg Magnesium Oxide (Magnesium Oxide) 800 mg PO ONETIME ONE Stop: 07/11/19 09:08 Last Admin: 07/11/19 09:38 Dose: 800 mg Methylprednisolone Sodium Succinate (Solu-Medrol) 125 mg IVPUSH ONETIME ONE Stop: 07/10/19 13:47 Last Admin: 07/10/19 13:55 Dose: 125 mg Methylprednisolone Sodium Succinate (Solu-Medrol) 40 mg IV BID [facility] Last Admin: 07/11/19 17:57 Dose: 40 mg Montelukast Sodium (Singulair) 10 mg PO DAILY [facility] Last Admin: 07/11/19 11:49 Dose: 10 mg Levothyroxine 50 Mcg (Tab) 50 each PO ACBREAKFAST [facility] Last Admin: 07/11/19 09:26 Dose: Not Given Venlafaxine 37.5 Mg (Er) 0 each PO DAILY [facility] Last Admin: 07/11/19 09:25 Dose: 1 each Venlafaxine 150 Mg (Er Capsule) 0 each PO DAILY [facility] Last Admin: 07/11/19 09:26 Dose: 1 each Sodium Chloride (Saline Flush) 10 ml FLUSH ASDIRECTED PRN PRN Reason: Keep Vein Open Last Admin: 07/10/19 13:55 Dose: 10 ml Sodium Chloride (Saline Flush) 2.5 ml FLUSH ASDIRECTED PRN PRN Reason: Keep Vein Open Last Admin: 07/10/19 13:55 Dose: 2.5 ml Venlafaxine HCl (Effexor Xr) 187.5 mg PO DAILY [facility] Last Admin: 07/11/19 09:33 Dose: Not Given
== END 2019-07-11 19:20 | disposition home or self-care (01) ==
LOC: MW.ED 13:36 → MW.MS 16:03
PROVIDERS: ADMIT Student in an Organized Health Care Education/Training Program; ATTEND Student in an Organized Health Care Education/Training Program
DX: J96.01 Acute respiratory failure with hypoxia (principal); J20.9 Acute bronchitis, unspecified; J44.9 Chronic obstructive pulmonary disease, unspecified; F41.9 Anxiety disorder, unspecified; E03.9 Hypothyroidism, unspecified; Z91.018 Allergy to other foods
CPT/HCPCS: 36415; 71046; 71275; 80048; 80053; 81025; 83605; 83735; 84100; 85025; 85379; 87804; 93005; 94640; 96361; 96374; 96376; 99285; A9270; G0378; J2920; J2930; J7040; Q9967; J7620-GY